=== PATIENT | female | born 1960 | race Caucasian/White ===

== ENCOUNTER 2019-11-20 09:11 | Outpatient (CLI) | payer MEDICARE, MEDICAID, SELFPAY ==
[2019-11-20 09:44] LABS: Basophils Absolute Auto 0.1 K/mm3 (0.0-0.1); Eosinophils Absolute Auto 0.7 K/mm3 (0-0.3); Eosinophils Percent Auto 7.2 % (0-4.4); Hematocrit 38.9 % (37.0-47.0); Hemoglobin 13.7 g/dL (12.0-15.0); Immature Granulocyte Absolute 0.04 K/mm3 (0.00-0.031); Immature Granulocyte Percent A 0.4 % (0-0.5); Lymphocytes Absolute Auto 2.75 K/mm3 (0.9-3.2); Lymphocytes Percent Auto 28.5 % (18.3-44.2); Mean Corpuscular HGB Conc 35.2 g/dl (32-36); Mean Corpuscular Hemoglobin 33.4 pg (26-34); Mean Corpuscular Volume 94.9 fl (80-100); Mean Platelet Volume 9.1 fl (7.4-10.4); Monocytes Absolute Auto 0.9 K/mm3 (0.1-0.6); Monocytes Percent Auto 9.1 % (2.6-8.5); Neutrophils Absolute Auto 5.2 K/mm3 (1.3-6.7); Neutrophils Percent Auto 53.8 % (45.5-73.1); Platelet Count Result 294 k/mm3 (150-375); Red Cell Distribution Width 12.6 % (11.5-14.5); White Blood Count 9.7 K/mm3 (4.5-10.0)
[2019-11-20 09:58] LABS: Alanine Aminotransferase 79 U/L (4-35); Albumin Level 4.3 g/dL (3.5-5.1); Alkaline Phosphatase 110 U/L (38-126); Anion Gap 8 mmol/L (8-16); Aspartate Amino Transferase 73 U/L (14-36); Bilirubin,Total 0.4 mg/dL (0.2-1.3); Blood Urea Nitrogen 17 mg/dL (7-17); Calcium 9.4 mg/dL (8.4-10.2); Carbon Dioxide 22 mmol/L (22-30); Chloride 104 mmol/L (98-107); Cholesterol 215 mg/dL (0-200); Estimated Glomerular Filt Rate > 60; Glucose 180 mg/dL (65-105); HDL Direct 53 mg/dL; Potassium 4.4 mmol/L (3.4-5.0); Sodium 134 mmol/L (137-145); Triglycerides 196 mg/dL (<150)
[2019-11-20 10:09] LABS: LDL Cholesterol Direct 142 mg/dL
== END 2019-11-20 09:12 | disposition home or self-care (01) ==
PROVIDERS: Visit Provider Emergency Medicine
DX: E78.5 Hyperlipidemia, unspecified (principal); E03.9 Hypothyroidism, unspecified; M89.9 Disorder of bone, unspecified
CPT/HCPCS: 36415; 80053; 80061; 84443; 85025

== ENCOUNTER 2020-05-29 14:18 | Emergency (ER) | payer MEDICARE, MEDICAID, SELFPAY ==
--- NOTE | ~2020-05-29 | XR_ITS ---
EXAMINATION: XR chest 1V portable INDICATION: Shortness of breath TECHNIQUE: Portable AP chest at 1527 hours COMPARISON: None available FINDINGS: The lungs are free of acute opacities. A calcified nodule of the right lung base is consist ent with old granulomatous disease. There is no pleural effusion or pneumothorax. The cardiomediastin al silhouette is normal. Changes of right total shoulder arthroplasty are noted. IMPRESSION: 1. No acute cardiopulmonary abnormality. Reviewed, dictated and finalized at location A. ING SUPERVISOR
[2020-05-29 14:23] VITALS: BP 148/98; PULSE 99; RESP 19; TEMP 36.6; O2SAT 99
--- NOTE | 2020-05-29 15:17 | ECG_ITS ---
Measurements Intervals [place] Rate: 88 P: 55 NH: 154 QRS: 71 QRSD: 148 T: 28 QT: 398 QTc: 482 Interpretive Statements SINUS RHYTHM RIGHT BUNDLE BRANCH BLOCK CONSIDER INFERIOR INFARCT, AGE INDETERMINATE ABNORMAL ECG Electronically Signed On 05-29-2020 15:40:38 [employer] TECHNICIAN by Bassem Bhatti D.O.
[2020-05-29 15:31] LABS: Basophils Absolute Auto 0.1 K/mm3 (0.0-0.1); Basophils Percent Auto 0.9 % (0.2-1.2); Eosinophils Absolute Auto 0.9 K/mm3 (0-0.3); Hematocrit 40.4 % (37.0-47.0); Hemoglobin 14.2 g/dL (12.0-15.0); Immature Granulocyte Absolute 0.02 K/mm3 (0.00-0.031); Immature Granulocyte Percent A 0.2 % (0-0.5); Lymphocytes Absolute Auto 2.57 K/mm3 (0.9-3.2); Lymphocytes Percent Auto 23.7 % (18.3-44.2); Mean Corpuscular HGB Conc 35.1 g/dl (32-36); Mean Corpuscular Hemoglobin 32.9 pg (26-34); Mean Corpuscular Volume 93.7 fl (80-100); Mean Platelet Volume 8.7 fl (7.4-10.4); Monocytes Absolute Auto 0.9 K/mm3 (0.1-0.6); Monocytes Percent Auto 8.2 % (2.6-8.5); Neutrophils Absolute Auto 6.4 K/mm3 (1.3-6.7); Platelet Count Result 299 k/mm3 (150-375); Red Blood Count 4.31 M/mm3 (4.2-5.4); White Blood Count 10.8 K/mm3 (4.5-10.0)
--- NOTE | 2020-05-29 15:33 | ED.GENADULT ---
HPI - General Adult General Chief complaint: Upper Respiratory Infection Stated complaint: i think i have walking pneumonia Time Seen by Provider: 05/29/20 14:42 Source: patient Mode of arrival: ambulatory Limitations: no limitations History of Present Illness HPI narrative: Patient is a 59-year-old female who presents to emergency department for evaluation of upper respiratory symptoms for the last 2 weeks patient notes cough that is nonproductive congestion rhinorrhea mild sore throat patient was placed on a Z-Jono yesterday by primary care took 2 doses yesterday 1 dose today patient notes left posterior lung pain that is an aching pain worse with breathing patient notes history of COPD and tobacco abuse patient has a nebulizer at home which she has been using off and on on arrival patient in no distress denies fever vomiting diarrhea Related Data Home Medications Medication Instructions Recorded Confirmed levothyroxine 88 mcg tablet 88 mcg PO DAILY 06/13/19 02/20/20 Allergies Allergy/AdvReac Type Severity Reaction Status Date / Time cephalexin Allergy Intermediate Other Verified 05/07/18 17:16 nalbuphine Allergy Unknown Verified 08/22/18 14:50 Sulfa (Sulfonamide Allergy Unknown Verified 08/22/18 14:49 Antibiotics) zolpidem Allergy Unknown Verified 05/19/18 11:05 Review of Systems Review of Systems: All systems reviewed & are unremarkable except as noted in HPI and below PMFSH Past Medical History Medical History (Updated 05/29/20 @ 17:12 by Daniel Allen PA-C) Acquired hypothyroidism Back pain at L4-L5 level Chronic Bitten or stung by nonvenomous insect and other nonvenomous arthropods, initial encounter Calculus of gallbladder with chronic cholecystitis without obstruction Cellulitis of toe of right foot Colon cancer screening Contact dermatitis Diverticulitis Eczema Encounter for screening for cardiovascular disorders Encounter for surgical aftercare following surgery on the digestive system Fat pad Fatigue Flank pain History of mammography, screening Insect bite of right lower leg Lytic bone lesions on xray Polyneuropathy Vitamin D deficiency Family History Family History Mother Cerebrovascular accident, Onset Age: 85 Social History Social History Smoking status: Former smoker Smoking end date: 04/11/18 Alcohol intake: never Gender identity (if verbalized by the patient): Female Exam Narrative: Exam Narrative: GENERAL: Well-appearing, well-nourished, and in no acute distress. HEAD: Normocephalic, atraumatic. EYES: PERRLA and EOMI. ENT: Nares clear, no rhinorrhea or epistaxis. Mucous membranes moist. CHEST: Slightly diminished on auscultation. No respiratory distress. Slight wheezes HEART: Regular rate and rhythm. No murmur heard. Normal peripheral pulses. ABDOMEN: Soft, nontender, nondistended EXTREMITIES: Normal range of motion. No edema. SKIN: Warm, dry, no rash. NEURO: No focal deficits. Alert and oriented x3. Cranial nerves II through XII grossly intact PSYCH: Normal mood and affect. Course Course Emergency Course: Patient in the room no distress aware of case findings treatment plan diagnosis Vital Signs Vital signs: Vital Signs Temperature 97.9 F 05/29/20 14:23 Pulse Rate 99 05/29/20 14:23 Respiratory Rate 19 05/29/20 14:23 Blood Pressure 148/98 H 05/29/20 14:23 Pulse Oximetry 99 05/29/20 14:23 Temperature 97.9 F 05/29/20 14:23 Pulse Rate 99 05/29/20 14:23 Respiratory Rate 19 05/29/20 14:23 Blood Pressure 148/98 H 05/29/20 14:23 Pulse Oximetry 99 05/29/20 14:23 Medical Decision Making MDM Narrative Medical decision making narrative: Patient seen for likely COPD exacerbation with URI symptoms will be tested for Covid advised to self quarantine treated symptomatically no pneumonia no hypoxemia p
[2020-05-29 15:39] LABS: INR 0.9; Prothrombin Time 12.9 Seconds (11.1-14.7)
[2020-05-29 15:40] LABS: Partial Thromboplastin Time 26.7 SECONDS (22.3-36.8)
[2020-05-29 15:42] LABS: D Dimer 0.43 ug/mL (<0.48)
[2020-05-29 15:45] LABS: Alanine Aminotransferase 55 U/L (4-35); Albumin Level 4.4 g/dL (3.5-5.1); Alkaline Phosphatase 93 U/L (38-126); Anion Gap 12 mmol/L (8-16); Aspartate Amino Transferase 54 U/L (14-36); Bilirubin,Total 0.9 mg/dL (0.2-1.3); Blood Urea Nitrogen 11 mg/dL (7-17); Calcium 9.9 mg/dL (8.4-10.2); Carbon Dioxide 22 mmol/L (22-30); Chloride 102 mmol/L (98-107); Estimated CRCL calculation 49 ml/min; Estimated Glomerular Filt Rate 57; Glucose 97 mg/dL (65-105); Potassium 4.2 mmol/L (3.4-5.0); Sodium 136 mmol/L (137-145)
[2020-05-29] MEDS: SODIUM CHLORIDE 0.9% IV 1,000 ML 999 ML IV CONT (15:54)
[2020-05-29 15:56] LABS: Troponin I < 0.012 ng/mL (0.000-0.034)
[2020-05-29 17:41] VITALS: BP 122/72; PULSE 79; RESP 15; O2SAT 96
[2020-05-30 14:07] LABS: SARS-CoV-2 RNA PCR Negative
== END 2020-05-29 17:42 | disposition home or self-care (01) ==
PROVIDERS: Emergency Medicine Emergency Medical Services; Emergency Provider Emergency Medicine; PCP Emergency Medicine
DX: J44.1 Chronic obstructive pulmonary disease with (acute) exacerbation (principal); E03.9 Hypothyroidism, unspecified
CPT/HCPCS: 36415; 71045; 80053; 84484; 85025; 85380; 85610; 85730; 93005; 96360; 99284; C9803; J7030; U0003; U0005

== ENCOUNTER 2020-09-17 13:47 | Outpatient (CLI) | payer MEDICARE, MEDICAID, SELFPAY ==
--- NOTE | ~2020-09-17 | MM_ITS ---
EXAMINATION: MM screening lino BI w jonathan HISTORY: Screening mammogram TECHNIQUE: Craniocaudal and mediolateral oblique 3-D tomosynthesis images were obtained and synthetic 2-D images were generated. CAD analysis was submitted and interpreted. COMPARISON: No prior mammogram is available for comparison at this institution. BREAST PARENCHYMAL COMPOSITION: There are scattered areas of fibroglandular density. FINDINGS: There is no evidence of suspicious mass, calcification, or architectural distortion to sugg est malignancy in either breast. There has been no suspicious interval change. IMPRESSION: 1. No mammographic evidence of malignancy. 2. Recommend routine screening mammography in one year. BI-RADS Category 1: Negative Reviewed, dictated and finalized at location A.
--- NOTE | ~2020-09-17 | XR_ITS ---
XR lumbar spine 2-3V 09/17/2020 14:39 Indication: Chronic centralized low back pain. No acute injury. Procedure: 3 views lumbar spine Comparison: MRI dated 08/29/2018 Findings: There is disc narrowing at L3-4, L4-5 and L5-S1. There is mild-moderate facet hypertrophy a t these levels. No acute fracture, subluxation or spondylolisthesis. Vertebral body heights are maint ained. There are cholecystectomy clips. Visualized bowel gas pattern is nonobstructive. Impression: 1: Stable-moderate lumbar spondylosis. Reviewed, dictated and finalized at location B. Impression: 1: Stable-moderate lumbar spondylosis.
== END 2020-09-17 13:48 | disposition home or self-care (01) ==
LOC: ANHIMG 13:57
PROVIDERS: PCP Emergency Medicine; Visit Provider Emergency Medicine
DX: Z12.31 Encounter for screening mammogram for malignant neoplasm of breast (principal); M54.5 Low back pain; M47.816 Spondylosis without myelopathy or radiculopathy, lumbar region
CPT/HCPCS: 72100; 77063; 77067

== ENCOUNTER 2021-02-24 09:07 | Inpatient (IN) | payer MEDICARE, MEDICAID, SELFPAY ==
[2021-02-24] VITALS (8 sets, daily range): BP systolic 120–177; BP diastolic 79–105; PULSE 58–93; RESP 14–21; TEMP 36.1–36.4; O2SAT 96–100; BMI 27.5
--- NOTE | ~2021-02-24 | XR_ITS ---
EXAMINATION: XR shoulder LT min 2V EXAM DATE: 02/24/2021 12:31 INDICATION: Fall, left clavicular, shoulder pain. Initial encounter. TECHNIQUE: The following left shoulder projections obtained: frontal projection with internal rotatio n, frontal projection with external rotation, Grashey, and scapular Y view (4+ views). There is no p rior study for comparison. FINDINGS: No evidence of left shoulder rotator cuff calcific tendinosis. There is mild glenohumeral joint, mild acromioclavicular joint primary osteoarthritis. There are no acute fractures or dislocati ons identified. There is no subcutaneous gas. The soft tissue is unremarkable. There is a tendon repair anchor along the proximal humeral shaft. IMPRESSION: 1. Left shoulder exam without acute osseous findings. 2. Mild osteoarthritis. Reviewed, dictated and finalized at location B. NER
--- NOTE | ~2021-02-24 | CT_ITS ---
EXAMINATION: CT abdomen pelvis wo con DATE: 02/25/2021 14:39 INDICATION: Abdominal distention. Diarrhea. TECHNIQUE: Computed tomography (CT) of the abdomen and pelvis was performed without intravenous contr ast. Automated exposure control and iterative reconstruction technique were employed. The dose-length product was 1153.53 mGy-cm. COMPARISON: CT abdomen and pelvis 09/25/2018 FINDINGS: The visualized portions of the lung bases demonstrate mild atelectasis. A calcified right l radha nodule is consistent with old granulomatous disease. No pleural effusion. The heart size is antione l. There are coronary artery calcifications. No pericardial effusion. There is diffuse hepatic steato sis. There are changes of cholecystectomy. The spleen and pancreas are normal. There are masses in th e adrenal glands measuring low-attenuation measuring up to 14 mm on the left, consistent with adenoma s. There is a 1.9 cm cyst in right kidney. Left kidney is normal. There is a urolithiasis. There are no dilated loops of bowel. The appendix is normal. There are no pathologically enlarged lymph nodes. There is no free intraperitoneal fluid. There is mild thoracolumbar spondylosis. IMPRESSION: 1. Diffuse hepatic steatosis. Reviewed, dictated and finalized at location A. ULATION CLERK
--- NOTE | ~2021-02-24 | CT_ITS ---
EXAMINATION: CT shoulder LT wo con DATE: 02/25/2021 14:39 INDICATION: Left shoulder pain. TECHNIQUE: Computed tomography (CT) of the left shoulder was performed without intravenous contrast. Automated exposure control and iterative reconstruction technique were employed. The dose-length prod uct was 327.29 mGy-cm. COMPARISON: Left shoulder radiographs 02/24/2021 FINDINGS: Bone alignment is normal. No fracture. There is mild osteoarthritis of glenohumeral joint a nd moderate osteoarthritis of acromioclavicular joint. Tracks in the greater tuberosity of proximal h umerus are likely from suture anchors. There is an implant in proximal humeral diaphysis. There is no asymmetric fatty atrophy of the rotator cuff muscle bellies. IMPRESSION: 1. Polyarticular osteoarthritis. Reviewed, dictated and finalized at location A. ABUSE COUNSELOR
--- NOTE | 2021-02-24 09:26 | ED.ABDPAIN ---
HPI - Abdominal Pain General Chief Complaint: Abdominal Pain Stated Complaint: diarrhea, st, congestion Time Seen by Provider: 02/24/21 09:24 Source: patient Mode of arrival: ambulatory Limitations: no limitations History of Present Illness HPI narrative: Patient is 60 years old white female presented to the ED because of massive diarrhea for the last 2 weeks. Patient is telling me liquid diarrhea at least 15 times a day associated with nausea. Patient denies any chest pain shortness of breath, back pain, abdominal pain or vomiting. Patient also denies any fever or chills. Patient reports having new onset of sore throat, body aches, and the last 3 days. Patient is fully vaccinated for COVID-19, denies any sneezing or respiratory symptoms. Patient had a fall yesterday because he was running to go to the bathroom for diarrhea, no loss of consciousness, no head injury, complaining of left shoulder pain. Denies other injuries. Related Data Home Medications Medication Instructions Recorded Confirmed exenatide microspheres 2 mg/0.65 See Rx Instructions .ROUTE .COMPLEX 09/03/20 mL subcutaneous pen injector levothyroxine 125 mcg capsule 125 mcg PO DAILY 09/12/20 Allergies Allergy/AdvReac Type Severity Reaction Status Date / Time cephalexin Allergy Intermediate Other Verified 02/24/21 09:14 triamcinolone Allergy Intermediate Rash Verified 02/24/21 09:14 nalbuphine Allergy Unknown Unknown Verified 02/24/21 09:14 Sulfa (Sulfonamide Allergy Unknown Unknown Verified 02/24/21 09:14 Antibiotics) zolpidem Allergy Unknown Unknown Verified 02/24/21 09:14 Review of Systems Review of Systems: CONSTITUTIONAL: Denies fever, chills, or sweats. EYES: Denies visual changes, redness, or discharge. ENT: Denies rhinorrhea, congestion, sore throat, or otalgia. CARDIOVASCULAR: Denies chest pain, palpitations, or edema. RESPIRATORY: Denies cough or dyspnea. GASTROINTESTINAL: Denies abdominal pain, nausea, vomiting, or diarrhea. GENITOURINARY: Denies dysuria or hematuria. SKIN: Denies rash or itching. MUSCULOSKELETAL: Denies back pain, joint pain, or myalgia. NEUROLOGIC: Denies headache, numbness, or weakness. PSYCHIATRIC: Denies anxiety or depression. [facility] Past Medical History Medical History (Updated 02/24/21 @ 12:28 by Tameka Whaley MD) Acquired hypothyroidism Back pain at L4-L5 level Chronic Bitten or stung by nonvenomous insect and other nonvenomous arthropods, initial encounter Calculus of gallbladder with chronic cholecystitis without obstruction Cellulitis of toe of right foot Colon cancer screening Contact dermatitis Diverticulitis Eczema Encounter for screening for cardiovascular disorders Encounter for surgical aftercare following surgery on the digestive system Fat pad Fatigue Flank pain History of mammography, screening Insect bite of right lower leg Lytic bone lesions on xray Polyneuropathy Vitamin D deficiency Family History Family History Mother Cerebrovascular accident, Onset Age: 85 Social History Social History Smoking status: Former smoker Smoking end date: 04/11/18 Alcohol intake: never Gender identity (if verbalized by the patient): Female Exam Narrative: General appearance: Well-developed, well-nourished Skin: Normal color Head: Normocephalic, nontraumatic Eyes: Clear conjunctiva ENT: Oropharynx normal, ears normal, nose normal Neck: Supple, nontender Chest and respiratory: Airway patent, no respiratory distress, no accessory muscle use Heart: Regular rate/rhythm Abdomen: Soft, nontender, no organomegaly, quiet bowel sounds Vascular: Normal peripheral pulses, normal capillary refill. Musculoskeletal: Diffuse tenderness left shoulder superiorly, slight limited range of motion Neurologic: Alert and oriented ?3, ORTHOPEDIC PODIATRIST is normal as tested, no gross motor deficit
[2021-02-24] MEDS: SODIUM CHLORIDE 0.9% IV 1,000 ML 999 ML IV CONT (09:30)
[2021-02-24 09:34] LABS: Basophils Absolute Auto 0.1 K/mm3 (0.0-0.1); Eosinophils Absolute Auto 0.4 K/mm3 (0-0.3); Eosinophils Percent Auto 4.3 % (0-4.4); Hematocrit 38.8 % (37.0-47.0); Hemoglobin 13.6 g/dL (12.0-15.0); Immature Granulocyte Absolute 0.02 K/mm3 (0.00-0.031); Immature Granulocyte Percent A 0.2 % (0-0.5); Lymphocytes Absolute Auto 3.14 K/mm3 (0.9-3.2); Lymphocytes Percent Auto 34.5 % (18.3-44.2); Mean Corpuscular HGB Conc 35.1 g/dl (32-36); Mean Corpuscular Hemoglobin 32.7 pg (26-34); Mean Corpuscular Volume 93.3 fl (80-100); Mean Platelet Volume 8.7 fl (7.4-10.4); Monocytes Absolute Auto 0.7 K/mm3 (0.1-0.6); Monocytes Percent Auto 7.6 % (2.6-8.5); Neutrophils Absolute Auto 4.8 K/mm3 (1.3-6.7); Neutrophils Percent Auto 52.4 % (45.5-73.1); Platelet Count Result 301 k/mm3 (150-375); Red Blood Count 4.16 M/mm3 (4.2-5.4); Red Cell Distribution Width 12.9 % (11.5-14.5); White Blood Count 9.1 K/mm3 (4.5-10.0)
[2021-02-24 09:39] LABS: Alanine Aminotransferase 52 U/L (4-35); Albumin Level 4.9 g/dL (3.5-5.1); Alkaline Phosphatase 102 U/L (38-126); Anion Gap 12 mmol/L (8-16); Aspartate Amino Transferase 42 U/L (14-36); Bilirubin,Total 1.4 mg/dL (0.2-1.3); Blood Urea Nitrogen 16 mg/dL (7-17); Calcium 9.9 mg/dL (8.4-10.2); Carbon Dioxide 19 mmol/L (22-30); Chloride 106 mmol/L (98-107); Estimated CRCL calculation 53 ml/min; Estimated Glomerular Filt Rate > 60; Glucose 135 mg/dL (65-110); Lipase 108 U/L (23-300); Potassium 3.8 mmol/L (3.4-5.0); Sodium 137 mmol/L (137-145)
[2021-02-24 09:41] LABS: Add Urine Microscopic? YES; Appearance Urine Cloudy (Clear); Bilirubin Urine Negative (Negative); Blood Urine Negative (Negative); Color Urine Amber (Yellow); Glucose Urine UA Negative (Negative); Ketones Urine Negative (Negative); Leukocyte Esterase Ur Trace LEU/UL (Negative); Mucus Urine Few /lpf; Nitrate Urine Negative (Negative); Protein Urine 1+ mg/dL (Negative); RBC Urine 0-2 /hpf (0-2); Specific Grav Ur 1.023 (1.001-1.035); Squamous Epithelial Cell Urine Moderate /hpf (Few)
--- NOTE | 2021-02-24 14:30 | PM.IMHP ---
H&P: HPI History of Present Illness Date/Time: 02/24/21 14:30 Chief Complaint: Diarrhea. Narrative: This is a 60-year-old female with history of mitochondrial myopathy, hypothyroidism, and anxiety who presented to the emergency department earlier today from home for evaluation of diarrhea. Per patient report, she typically has a bowel movement every 21 days however over the past 3 weeks she has developed diarrhea and reports up to 30 episodes of watery orange/brown stools a day. She has had some mild nausea and bloating but she has not had any significant abdominal discomfort. Initially she thought perhaps she had the flu as she had some body aches and intermittent chills and sweats. She has tried fasting as well as multiple vyha-tex-ecsszqj medications however she has continued to have the diarrhea. She has been drinking a lot of 6 bright and water to stay hydrated but has been getting somewhat lightheaded. In fact last night when coming back from the bathroom she was feeling lightheaded and fell forward onto the floor, mainly on her left shoulder, and she thinks perhaps she had a brief loss of consciousness with that as well. She has not had a documented fever. There has not been any blood or mucus in the stool. She denies recent antibiotic use, travel, and sick contacts. Patient had a colonoscopy several years ago in which 1 benign polyp was removed. She also reports a history of diverticulitis many years ago but states these symptoms are not at all similar. Review of Systems Review of Systems: Twelve systems were reviewed. No fever. She has had a mild sore throat. No sinus congestion. She has had perhaps a mild cough. No chest pain or shortness of breath. No vomiting. No blood or mucus in the stool. No weight loss. [facility] Past Medical History Medical History (Updated 02/24/21 @ 23:44 by Mallory Rollins PA-C) Anxiety Chronic back pain Diverticulitis Eczema Hypothyroidism Lumbar spondylosis Lytic bone lesions on xray Subsequent MRIs showed no evidence of lytic lesions. 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 History of repair of left rotator cuff History of reverse total replacement of right shoulder joint Family History Family History Mother Cerebrovascular accident, Onset Age: 85 Heart disease Father Parkinson's disease Social History Social History (Updated 02/24/21 @ 23:45 by Mallory Rollins PA-C) Social History: Surrogate decision maker: herlinda Slater or Elinor Blanchard, sister. Code status: Full code. Smoking packs per day: 1 Smoking cigarettes per day: 20.0 Smoking status: Current every day smoker Tobacco type: cigarettes Second hand tobacco smoke exposure: Yes Additional smoking assessment comments: Off and on since age 16. Previously quit for nearly 20 years. Alcohol intake: current Alcohol use details: Drinks perhaps 1 or 2 alcoholic beverages a year. Substance use: current Other substance usage details: Medical marijuana. Additional living arrangements comments: The patient lives in [place] with her fiance. Additional occupation/education comments: Disabled. Meds Home Medications and Allergies Home Medications Medication Instructions Recorded Confirmed Type albuterol sulfate See Rx Instructions .ROUTE 07/03/19 02/20/20 Rx .COMPLEX #180 ml exenatide microspheres 2 mg/0.65 See Rx Instructions .ROUTE .COMPLEX 09/03/20 History mL subcutaneous pen injector triamcinolone acetonide 0.1 % See Rx Instructions .ROUTE 09/10/20 Rx topical cr
[2021-02-24] MEDS: ACETAMINOPHEN 500 MG TABLET 1000 MG PO (15:26)
--- NOTE | 2021-02-24 15:53 | PC.NURSE ---
This patient, Dianne Arenas, was admitted to [facility] Surg Room 322-01 at 1543. Patient/family oriented to hospital policies and general routines including ID bracelet, bed and alarms, visiting hours, pain management, procedures, bathroom and other care routines, personal items, smoking policy, room service/diet, and visiting hours. Information on how to activate the Rapid Response Team has been discussed. Patient/Family are encouraged to report perceived risks to care and to ask questions if they do not understand what they are told or what they should do.
[2021-02-24] MEDS: SODIUM CHLORIDE 0.9% IV 1,000 ML 200 ML IV CONT ×2 (16:57→22:30)
--- NOTE | 2021-02-24 17:21 | PC.NURSE ---
pt has top denture plate
[2021-02-24] MEDS: HYDROcodone/acetaminophen (*CRX) 5-325 MG TABLET 1 TAB PO (20:01)
[2021-02-24] MEDS: ONDANSETRON INJ 4 MG/2 ML VIAL IV PUSH (22:31)
[2021-02-25] MEDS: HYDROcodone/acetaminophen (*CRX) 5-325 MG TABLET 1 TAB PO ×3 (01:27→20:26)
[2021-02-25] MEDS: ONDANSETRON INJ 4 MG/2 ML VIAL IV PUSH ×4 (01:28→18:26)
[2021-02-25 02:57] LABS: IFOB Positive Control Positive; Immunochemical Fecal Occult Bl Negative (N)
[2021-02-25 06:40] VITALS: BP 117/77; PULSE 61; RESP 14; TEMP 36.1; O2SAT 99
[2021-02-25 06:44] LABS: Anion Gap 8 mmol/L (8-16); Blood Urea Nitrogen 9 mg/dL (7-17); Calcium 8.9 mg/dL (8.4-10.2); Carbon Dioxide 20 mmol/L (22-30); Chloride 111 mmol/L (98-107); Estimated CRCL calculation 67 ml/min; Estimated Glomerular Filt Rate > 60; Glucose 110 mg/dL (65-110); Magnesium 1.5 mg/dL (1.6-2.3); Potassium 3.6 mmol/L (3.4-5.0); Sodium 139 mmol/L (137-145)
[2021-02-25] MEDS: LEVOTHYROXINE SODIUM 25 MCG TABLET PO (06:44)
[2021-02-25] MEDS: LEVOTHYROXINE SODIUM 100 MCG TABLET PO (06:44)
[2021-02-25] MEDS: SODIUM CHLORIDE 0.9% IV 1,000 ML 75 ML IV CONT ×2 (06:46→20:28)
[2021-02-25] MEDS: AMITRIPTYLINE HCL 25 MG TABLET PO (08:21)
--- NOTE | 2021-02-25 11:18 | PCCCNOTE ---
On 02/25/21, the student, [Hallie Leone ], provided care and [facility]. I have reviewed the student's documentation and agree with the findings.
--- NOTE | 2021-02-25 11:20 | PM.IMPN ---
Progress Note: A&P Assessment and Plan (1) Diarrhea: Code(s): R19.7 - Diarrhea, unspecified Status: Acute Assessment and Plan: Patient reports having upwards of 30 liquid stools a day for the past 3 weeks. No significant electrolyte abnormalities noted on labs however her serum bicarb is a bit low at 19. Stool studies including culture have been collected and are pending. Banatrol Plus added to help bulk up her stools. No indication for antibiotics at this time. Dr. Contreras has been consulted and his input is appreciated. Ongoing so will recheck CT abdomen and pelvis Check ESR and CRP She states that she gets normally 1 bowel movement every 3 weeks Colonoscopy in the past with polyp few years ago (2) Elevated LFTs: Code(s): R79.89 - Other specified abnormal findings of blood chemistry Status: Acute Assessment and Plan: Total bilirubin, AST, and ALT are very mildly elevated and this has been noted on labs dating back to November 2019. Being followed by her primary care provider thus no plans for further workup. (3) Hypothyroidism: Code(s): E03.9 - Hypothyroidism, unspecified Status: Acute Assessment and Plan: Continue levothyroxine and check TSH. (4) Anxiety: Code(s): F41.9 - Anxiety disorder, unspecified Status: Acute Assessment and Plan: No acute issues. Continue clonazepam. (5) Elevated blood pressure reading: Code(s): R03.0 - Elevated blood-pressure reading, without diagnosis of hypertension Status: Acute Assessment and Plan: Patient's blood pressure has ranged from the 120s to 170 systolic. She has no history of hypertension thus we will continue to monitor to see us this is a trend or isolated readings. 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 (7) Left shoulder pain: Code(s): M25.512 - Pain in left shoulder Status: Acute Assessment and Plan: Since the fall. X-ray negative will get CT left shoulder for further evaluation History of arthroscopic debridement of the SL a PT year release of the by since tendon January 17, 2020 Subjective Date/time seen: 02/25/21 11:20 Interval history: HPI:This is a 60-year-old female with history of mitochondrial myopathy, hypothyroidism, and anxiety who presented to the emergency department earlier today from home for evaluation of diarrhea. Per patient report, she typically has a bowel movement every 21 days however over the past 3 weeks she has developed diarrhea and reports up to 30 episodes of watery orange/brown stools a day. She has had some mild nausea and bloating but she has not had any significant abdominal discomfort. Initially she thought perhaps she had the flu as she had some body aches and intermittent chills and sweats. She has tried fasting as well as multiple owzy-vpr-iopgofd medications however she has continued to have the diarrhea. She has been drinking a lot of 6 bright and water to stay hydrated but has been getting somewhat lightheaded. In fact last night when coming back from the bathroom she was feeling lightheaded and fell forward onto the floor, mainly on her left shoulder, and she thinks perhaps she had a brief loss of consciousness with that as well. She has not had a documented fever. There has not been any blood or mucus in the stool. She denies recent antibiotic use, travel, and sick contacts. Patient had a colonoscopy several years ago in which 1 benign polyp was removed. She also reports a history of diverticulitis many years ago but states these symptoms are not at all similar. 02/25/2021: Reports her left shoulder pain is bad. St
[2021-02-25 12:09] LABS: CRP < 0.5 mg/dL (<1.0)
[2021-02-25] MEDS: MORPHINE SULFATE (*CRX) 2 MG/ML INJ IV PUSH ×2 (12:50→17:45)
[2021-02-25] MEDS: MAGNESIUM SULF 2 GM/WATER 50ML 2 GM/50 ML BAG IVPB (12:50)
[2021-02-25 13:14] VITALS: BMI 27.5
[2021-02-25 14:00] VITALS: BP 129/101; PULSE 62; RESP 16; TEMP 36.1; O2SAT 99
[2021-02-25 14:49] LABS: Erythrocyte Sedimentation Rate 15 mm/hr (0-20)
[2021-02-25] MEDS: clonazePAM (*CRX) 0.5 MG TABLET 1 MG PO ×2 (14:55→20:24)
--- NOTE | 2021-02-25 16:18 | WPDGICN ---
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, not elsewhere classified Status: Acute Assessment and Plan: will get ck she is seeing neurology at [facility] (3) Elevated LFTs: Code(s): R79.89 - Other specified abnormal findings of blood chemistry Status: Acute Assessment and Plan: stable since last year ct scan noted fatty liver will get hepatitis serology (4) Fatty liver: Code(s): K76.0 - Fatty (change of) liver, not elsewhere classified Status: Acute (5) Bloating: Code(s): R14.0 - Abdominal distension (gaseous) Status: Acute GI Consult Note Consult date/time: 02/25/21 16:18 Reason for consult: diarrhea HPI: Dianne Arenas is a 60 year old female with 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 She says that at baseline for last couple of years she normally won't use restroom for up to 3 weeks then will have a normal BM. Last 3 weeks with several episodes of diarrhea daily sometimes with accidents when she can't make it on time to restroom, watery orange/brown stools, also bloating and nausea. Some chills but no fever, can not tell if weight loss. She tried fasting as well as multiple qsoj-[id number] medications without any relief. Yesterday was feeling lightheaded and fell forward onto the floor, and she thinks perhaps she had a brief loss of consciousness. She denies recent antibiotic use, travel, and sick contacts. Her last colonoscopy about 3 years ago with polyp removed. CT scan a/p reviewed, Diffuse hepatic steatosis. Also mild elevated liver enzymes but noted previously. Review of Systems Constitutional: Constitutional: Reports lethargy Eyes: Eyes: Denies blurry vision ENT: Reports Normal hearing present Cardiovascular: Cardiovascular: Denies chest pain Respiratory: Respiratory: Denies dyspnea Gastrointestinal: Gastrointestinal: Reports diarrhea Genitourinary: Genitourinary: Denies hematuria Musculoskeletal: Musculoskeletal: Denies neck pain Integumentary/Breasts: Skin/Breast: Denies dry skin Neurologic: Comments: muscle weakness- chronic Psychiatric: Psychiatric: Reports no additional psychiatric complaints [facility] Past Medical History Medical History (Updated 02/25/21 @ 16:27 by Jesus Alberto Contreras MD) Anxiety Bloating Chronic back pain Diverticulitis Eczema Fatty liver Hypothyroidism Lumbar spondylosis Lytic bone lesions on xray Subsequent MRIs showed no evidence of lytic lesions. 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 History of repair of left rotator cuff History of reverse total replacement of right shoulder joint Family History Family History Mother Cerebrovascular accident, Onset Age: 85 Heart disease Father Parkinson's disease Social History Social History (Updated 02/24/21 @ 23:45 by Mallory Rollins PA-C) Social History: Surrogate decision maker: herlinda Slater or Elinor Blanchard, sister. Code status: Full code. Smoking packs per day: 1 Smoking cig
[2021-02-25] MEDS: CYCLOBENZAPRINE HCL 10 MG TABLET PO (20:27)
[2021-02-25 22:00] VITALS: BP 137/95; PULSE 65; RESP 16; TEMP 36.7; O2SAT 97
[2021-02-26] MEDS: LEVOTHYROXINE SODIUM 100 MCG TABLET PO (05:31)
[2021-02-26] MEDS: LEVOTHYROXINE SODIUM 25 MCG TABLET PO (05:31)
[2021-02-26 06:00] VITALS: BP 134/88; PULSE 63; RESP 16; TEMP 36.8; O2SAT 96
[2021-02-26 06:47] LABS: Basophils Absolute Auto 0.1 K/mm3 (0.0-0.1); Eosinophils Absolute Auto 0.4 K/mm3 (0-0.3); Hemoglobin 12.2 g/dL (12.0-15.0); Immature Granulocyte Absolute 0.02 K/mm3 (0.00-0.031); Immature Granulocyte Percent A 0.3 % (0-0.5); Lymphocytes Absolute Auto 1.99 K/mm3 (0.9-3.2); Lymphocytes Percent Auto 32.4 % (18.3-44.2); Mean Corpuscular HGB Conc 34.9 g/dl (32-36); Mean Corpuscular Hemoglobin 33.3 pg (26-34); Mean Corpuscular Volume 95.6 fl (80-100); Mean Platelet Volume 8.7 fl (7.4-10.4); Monocytes Absolute Auto 0.6 K/mm3 (0.1-0.6); Neutrophils Absolute Auto 3.2 K/mm3 (1.3-6.7); Neutrophils Percent Auto 51.3 % (45.5-73.1); Platelet Count Result 249 k/mm3 (150-375); Red Blood Count 3.66 M/mm3 (4.2-5.4); Red Cell Distribution Width 12.6 % (11.5-14.5); White Blood Count 6.1 K/mm3 (4.5-10.0)
[2021-02-26 06:55] LABS: Alanine Aminotransferase 51 U/L (4-35); Albumin Level 3.7 g/dL (3.5-5.1); Alkaline Phosphatase 80 U/L (38-126); Anion Gap 8 mmol/L (8-16); Aspartate Amino Transferase 47 U/L (14-36); Blood Urea Nitrogen 7 mg/dL (7-17); Carbon Dioxide 20 mmol/L (22-30); Chloride 107 mmol/L (98-107); Creatine Kinase 104 U/L (30-135); Estimated CRCL calculation 67 ml/min; Estimated Glomerular Filt Rate > 60; Glucose 118 mg/dL (65-110); Potassium 3.8 mmol/L (3.4-5.0); Sodium 135 mmol/L (137-145)
[2021-02-26 07:07] LABS: Prothrombin Time 13.4 Seconds (11.1-14.7)
[2021-02-26] MEDS: AMITRIPTYLINE HCL 25 MG TABLET PO (08:14)
[2021-02-26 09:14] LABS: Hepatitis B Surface Antigen Negative (Negative)
[2021-02-26 09:20] LABS: HAV RESULT Negative (Negative); Hepatitis B Core IgM Result Negative (Negative)
[2021-02-26] MEDS: CYCLOBENZAPRINE HCL 10 MG TABLET PO (09:28)
[2021-02-26] MEDS: HYDROcodone/acetaminophen (*CRX) 5-325 MG TABLET 1 TAB PO (09:28)
[2021-02-26 09:31] LABS: Hepatitis C Virus Antibody Negative (Negative)
[2021-02-26] MEDS: SODIUM CHLORIDE 0.9% IV 1,000 ML 75 ML IV CONT (11:42)
[2021-02-26] MEDS: MORPHINE SULFATE (*CRX) 2 MG/ML INJ IV PUSH ×3 (11:46→23:00)
[2021-02-26] MEDS: ONDANSETRON INJ 4 MG/2 ML VIAL IV PUSH ×2 (12:53→23:02)
--- NOTE | 2021-02-26 13:50 | PM.IMPN ---
Progress Note: A&P Assessment and Plan (1) Diarrhea: Code(s): R19.7 - Diarrhea, unspecified Status: Acute Assessment and Plan: Patient reports having upwards of 30 liquid stools a day for the past 3 weeks. No significant electrolyte abnormalities noted on labs however her serum bicarb is a bit low at 19. Stool studies including culture have been collected and are pending. Banatrol Plus added to help bulk up her stools. No indication for antibiotics at this time. Dr. Contreras has been consulted and his input is appreciated. CT abdomen pelvis with no intestinal problem noted has hepatic steatosis ESR CRP normal indicating non inflammatory diarrhea She states that she gets normally 1 bowel movement every 3 weeks Colonoscopy in the past with polyp few years ago Stool test has been so far negative some of this is are still pending. May treat for irritable bowel syndrome with diarrhea with rifaximin once cultures finalized GI consultation appreciated. Plan for colonoscopy on Tuesday if nothing revealing until then (2) Elevated LFTs: Code(s): R79.89 - Other specified abnormal findings of blood chemistry Status: Acute Assessment and Plan: Total bilirubin, AST, and ALT are very mildly elevated and this has been noted on labs dating back to November 2019. Being followed by her primary care provider thus no plans for further workup. Hepatic steatosis noted and the CT scan (3) Hypothyroidism: Code(s): E03.9 - Hypothyroidism, unspecified Status: Acute Assessment and Plan: Continue levothyroxine and TSH within normal limit (4) Anxiety: Code(s): F41.9 - Anxiety disorder, unspecified Status: Acute Assessment and Plan: No acute issues. Continue clonazepam. (5) Elevated blood pressure reading: Code(s): R03.0 - Elevated blood-pressure reading, without diagnosis of hypertension Status: Acute Assessment and Plan: Patient's blood pressure has ranged from the 120s to 170 systolic. She has no history of hypertension thus we will continue to monitor to see us this is a trend or isolated readings. 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 (7) Left shoulder pain: Code(s): M25.512 - Pain in left shoulder Status: Acute Assessment and Plan: Since the fall. X-ray negative CT left shoulder with no bony injuries noted likely musculoskeletal injury biceps tendinosis likely Symptomatic treatment History of arthroscopic debridement of the SL a PT year release of the by since tendon January 17, 2020 Subjective Date/time seen: 02/26/21 13:50 Interval history: HPI:This is a 60-year-old female with history of mitochondrial myopathy, hypothyroidism, and anxiety who presented to the emergency department earlier today from home for evaluation of diarrhea. Per patient report, she typically has a bowel movement every 21 days however over the past 3 weeks she has developed diarrhea and reports up to 30 episodes of watery orange/brown stools a day. She has had some mild nausea and bloating but she has not had any significant abdominal discomfort. Initially she thought perhaps she had the flu as she had some body aches and intermittent chills and sweats. She has tried fasting as well as multiple [id number] medications however she has continued to have the diarrhea. She has been drinking a lot of 6 bright and water to stay hydrated but has been getting somewhat lightheaded. In fact last night when coming back from the bathroom she was feeling lightheaded and fell forward onto the floor, mainly on her left shoulder, and she thinks perhaps she had a
[2021-02-26 14:00] VITALS: BP 129/73; PULSE 53; RESP 20; TEMP 36.4; O2SAT 100
--- NOTE | 2021-02-26 16:51 | WPDGIPROGNO ---
Progress Note: A&P Assessment and Plan (1) Diarrhea: Code(s): R19.7 - Diarrhea, unspecified Status: Acute Assessment and Plan: stool samples thus far negative for infection will do colonoscopy tomorrow with random colon bx. 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 Review of Systems Review of Systems: All systems reviewed & are unremarkable except as noted in HPI and below Exam Const: General: comfortable and no acute distress HENMT: General nose exam: Normal nares present Eyes: General: appearance normal, both eyes and all related structures Neck: Neck: no JVD Resp: Auscultation: clear to auscultation bilaterally Cardio: Rate: regular rate Rhythm: regular rhythm GI: Inspection: non-distended GI Palp: Yes Soft to palpation and No Guarding due to palpation present (GI) Auscultation: normal bowel sounds Skin: General skin exam: normal color Neuro: Speech: normal speech Extrem: General: normal to inspection Psych: Mental Status: mental status grossly normal Objective Data Vital Signs Vital Signs: Vital Signs - 24 hr 02/25/21 22:00 02/26/21 06:00 02/26/21 14:00 Temperature 98.0 F 98.3 F 97.5 F L Pulse Rate 65 63 53 L Respiratory Rate 16 16 20 Blood Pressure 137/95 H 134/88 129/73 Pulse Oximetry 97 96 100 Intake/Output Intake/Output: Intake & Output 02/23/21 02/24/21 02/25/21 02/26/21 23:59 23:59 23:59 23:59 Intake Total 0974 3210 1925 Output Total 550 Balance 3184 3210 1375 Meds/Results Medications: Active Medications Generic Name Dose Route Start Last Admin Trade Name Freq PRN Reason Stop Dose Admin Acetaminophen 650 mg 02/24/21 18:26 Acetaminophen 325 Mg Tablet PO Q6H PRN Mild Pain (1-3) or Fever Hydrocodone Bitart/Acetaminophen 1 tab 02/24/21 18:26 02/26/21 09:28 Hydrocodone/Acetaminophen (*Crx) 5-325 Mg Tablet PO 1 tab Q6H PRN Administration Pain Rated 4-6 Albuterol 2 puff 02/24/21 23:55 Albuterol Sulfate (*Sp) Aerosol 1 Puff INHALATION Q4-6H PRN Shortness Of Breath Or Wheezing Amitriptyline HCl 25 mg 02/25/21 09:00 02/26/21 08:14 Amitriptyline Hcl 25 Mg Tablet PO 25 mg DAILY MICHELLE Administration Bisacodyl 20 mg 02/26/21 17:00 Bisacodyl 5 Mg Tablet Ec PO 02/26/21 17:01 ONCE ONE Clonazepam 1 mg 02/25/21 15:00 02/25/21 20:24 Clonazepam (*Crx) 0.5 Mg Tablet PO 1 mg 1500,2100 MICHELLE Administration Cyclobenzaprine HCl 10 mg 02/25/21 11:51 02/26/21 09:28 Cyclobenzaprine Hcl 10 Mg Tablet PO 10 mg Q8H PRN Administration Muscle Spasm Sodium Chloride 1,000 mls @ 75 mls/hr 02/24/21 12:50 02/26/21 11:42 Normal Saline Iv IV CONT 75 mls/hr .[id number] MICHELLE Administration Levothyroxine Sodium 100 mcg 02/25/21 06:30 02/26/21 05:31 Levothyroxine Sodium 100 Mcg Tablet PO 100 mcg DAILY@0630 MICHELLE Administration Levothyroxine Sodium 25 mcg 02/25/21 06:30 02/26/21 05:31 Levothyroxine Sodium 25 Mcg Tablet PO 25 mcg DAILY@0630 MICHELLE Administration Magnesium Citrate 300 ml 02/27/21 04:00 Magnesium Citrate 300 Ml Btl PO 02/27/21 04:01 ONCE ONE Morphine Sulfate 2 mg 02/25/21 11:41 02/26/21 11:46 Morphine Sulfate (*Crx) 2 Mg/Ml Inj IV PUSH 2 mg Q4H PRN Administration Pain Rat
[2021-02-26] MEDS: BISACODYL 5 MG TABLET EC 20 MG PO (17:41)
[2021-02-26] MEDS: polyethylene glycoL 3350 238 GM BOTTLE PO (18:27)
[2021-02-26] MEDS: clonazePAM (*CRX) 0.5 MG TABLET 1 MG PO ×2 (18:28→20:47)
[2021-02-26 21:09] VITALS: PULSE 60; RESP 20; O2SAT 98
[2021-02-26 21:45] VITALS: BP 155/83; PULSE 61; RESP 18; TEMP 36.6; O2SAT 100
[2021-02-27] MEDS: MAGNESIUM CITRATE 300 ML BTL PO (02:48)
[2021-02-27] MEDS: MORPHINE SULFATE (*CRX) 2 MG/ML INJ IV PUSH ×2 (05:09→09:33)
[2021-02-27] MEDS: SODIUM CHLORIDE 0.9% IV 1,000 ML 75 ML IV CONT (05:13)
[2021-02-27] MEDS: LEVOTHYROXINE SODIUM 100 MCG TABLET PO (05:14)
[2021-02-27] MEDS: LEVOTHYROXINE SODIUM 25 MCG TABLET PO (05:14)
[2021-02-27] MEDS: ONDANSETRON INJ 4 MG/2 ML VIAL IV PUSH (05:18)
[2021-02-27 05:57] VITALS: BP 129/81; PULSE 73; RESP 18; TEMP 36.4; O2SAT 100
[2021-02-27 06:24] LABS: Basophils Absolute Auto 0.1 K/mm3 (0.0-0.1); Basophils Percent Auto 0.6 % (0.2-1.2); Eosinophils Absolute Auto 0.4 K/mm3 (0-0.3); Eosinophils Percent Auto 4.9 % (0-4.4); Hematocrit 38.6 % (37.0-47.0); Hemoglobin 13.4 g/dL (12.0-15.0); Immature Granulocyte Absolute 0.02 K/mm3 (0.00-0.031); Immature Granulocyte Percent A 0.3 % (0-0.5); Lymphocytes Absolute Auto 2.73 K/mm3 (0.9-3.2); Lymphocytes Percent Auto 34.1 % (18.3-44.2); Mean Corpuscular HGB Conc 34.7 g/dl (32-36); Mean Corpuscular Hemoglobin 33.3 pg (26-34); Mean Platelet Volume 8.9 fl (7.4-10.4); Monocytes Absolute Auto 0.7 K/mm3 (0.1-0.6); Monocytes Percent Auto 8.1 % (2.6-8.5); Neutrophils Absolute Auto 4.2 K/mm3 (1.3-6.7); Platelet Count Result 291 k/mm3 (150-375); Red Blood Count 4.02 M/mm3 (4.2-5.4); Red Cell Distribution Width 12.5 % (11.5-14.5)
[2021-02-27 06:40] LABS: Alanine Aminotransferase 62 U/L (4-35); Albumin Level 4.5 g/dL (3.5-5.1); Alkaline Phosphatase 93 U/L (38-126); Anion Gap 11 mmol/L (8-16); Aspartate Amino Transferase 56 U/L (14-36); Bilirubin,Total 0.8 mg/dL (0.2-1.3); Blood Urea Nitrogen 5 mg/dL (7-17); Carbon Dioxide 20 mmol/L (22-30); Chloride 105 mmol/L (98-107); Estimated CRCL calculation 59 ml/min; Estimated Glomerular Filt Rate > 60; Glucose 111 mg/dL (65-110); Potassium 3.7 mmol/L (3.4-5.0); Sodium 136 mmol/L (137-145)
[2021-02-27] MEDS: AMITRIPTYLINE HCL 25 MG TABLET PO (07:57)
[2021-02-27] MEDS: CYCLOBENZAPRINE HCL 10 MG TABLET PO (07:57)
--- NOTE | 2021-02-27 11:18 | PCNFU ---
Nutrition Follow-Up Complete: Inadequate Oral Intake as related to Diarrhea as evidenced by poor po intake reported. Goal: Meet estimated nutritional needs Pt. is progressing towards goal. No new goal at this time. Pt current nutrition is NPO. Last recorded weight is 68.2 kg. Recommend re-weighing prior to discharge. Bowel Motility: + BM 02/27/2021 Labs Reviewed: Na 136, BUN 5, Glu 111 Meds Noted: Albuterol, Elavil, Flexeril, Synthroid, Clonazepam Skin: No skin breakdown at this time. WNL. Additional Notes: Checked in with pt.. Pt. reports having 30+ bm per day. She is having a colonoscopy today, 02/27/2021. When asked about her appetite she said she cannot even think about food . She wants to get this figured out so she can start to feel normal again. Will monitor every 3 days.
--- NOTE | 2021-02-27 13:35 | PC.NURSE ---
patient going to GI lab via wheelchair.
--- NOTE | 2021-02-27 13:47 | PCNSR ---
On 02/27/21, the student, Mae James, provided care and completed [facility] documentation on this patient. I have reviewed the student's documentation and agree with the findings.
[2021-02-27] MEDS: SODIUM CHLORIDE 0.9% IV 500 ML 10 ML IV CONT (13:52)
--- NOTE | 2021-02-27 13:57 | WPDANESEPPF ---
Anes - Initial Pre Proc Eval Procedure: Operation Date: 02/27/21 14:00 Proposed Procedures p Colonoscopy - Jesus Alberto Cnotreras MD Date/Time: 02/27/21 13:57 Surgeon: Jonhson Rutledge MD Pre Op Diagnosis: diarrhea Patient Data Age: 60 Gender: F Height: 1.57 m Weight: 68.2 kg Last Vital Signs Temp 97.6 F 02/27/21 05:57 Pulse 73 02/27/21 05:57 Resp 18 02/27/21 05:57 BP 129/81 02/27/21 05:57 Pulse Ox 100 02/27/21 05:57 Allergies Allergy/AdvReac Type Severity Reaction Status Date / Time cephalexin Allergy Intermediate Other Verified 02/24/21 09:14 triamcinolone Allergy Intermediate Rash Verified 02/24/21 09:14 nalbuphine Allergy Unknown Unknown Verified 02/24/21 09:14 Sulfa (Sulfonamide Allergy Unknown Unknown Verified 02/24/21 09:14 Antibiotics) zolpidem Allergy Unknown Unknown Verified 02/24/21 09:14 lactated Ringers Allergy Other Uncoded 02/27/21 13:48 Home Medications Medication Instructions Recorded Confirmed Type albuterol sulfate See Rx Instructions .ROUTE 07/03/19 02/20/20 Rx .COMPLEX #180 ml exenatide microspheres 2 mg/0.65 See Rx Instructions .ROUTE .COMPLEX 09/03/20 History mL subcutaneous pen injector triamcinolone acetonide 0.1 % See Rx Instructions .ROUTE 09/10/20 Rx topical cream .COMPLEX #80 g levothyroxine 125 mcg capsule 125 mcg PO DAILY 09/12/20 02/24/21 History albuterol sulfate 90 mcg/actuation See Rx Instructions .ROUTE 12/12/20 02/24/21 Rx aerosol inhaler .COMPLEX #25.5 g clonazepam 1 mg tablet 1 mg PO BID #60 tablet 12/25/20 02/24/21 Rx amitriptyline 25 mg tablet 25 mg PO DAILY #30 tablet 02/25/21 Rx Laboratory Tests 02/27/21 02/27/21 05:57 05:57 WBC 8.0 K/mm3 K/mm3 (4.5-10.0) RBC 4.02 M/mm3 L M/mm3 (4.2-5.4) Hgb 13.4 g/dL g/dL (12.0-15.0) Hct 38.6 % % (37.0-47.0) MCV 96.0 fl fl (80-100) MCH 33.3 pg pg (26-34) MCHC 34.7 g/dl g/dl (32-36) RDW 12.5 % % (11.5-14.5) Plt Count 291 k/mm3 k/mm3 (150-375) MPV 8.9 fl fl (7.4-10.4) Immature Gran % (Auto) 0.3 % % (0-0.5) Neut % (Auto) 52.0 % % (45.5-73.1) Lymph % (Auto) 34.1 % % (18.3-44.2) [place] % (Auto) 8.1 % % (2.6-8.5) Eos % (Auto) 4.9 % H % (0-4.4) Baso % (Auto) 0.6 % % (0.2-1.2) Lymph # (Auto) 2.73 K/mm3 K/mm3 (0.9-3.2) [place] # (Auto) 0.7 K/mm3 H K/mm3 (0.1-0.6) Eos # (Auto) 0.4 K/mm3 H K/mm3 (0-0.3) Baso # (Auto) 0.1 K/mm3 K/mm3 (0.0-0.1) Abs Immat Gran (auto) 0.02 K/mm3 K/mm3 (0.00-0.031) Absolute Neuts (auto) 4.2 K/mm3 K/mm3 (1.3-6.7) Absolute Nucleated RBC 0.0 K/mm3 K/mm3 (0.0-0.012) Nucleated RBC % 0.0 % % (0.0-0.2) Sodium 136 mmol/L L mmol/L (137-145) Potassium 3.7 mmol/L mmol/L (3.4-5.0) Chloride 105 mmol/L mmol/L (98-107) Carbon Dioxide 20 mmol/L L mmol/L (22-30) Anion Gap 11 mmol/L mmol/L (8-16) BUN 5 mg/dL L mg/dL (7-17) Creatinine 0.80 mg/dL mg/dL (0.7-1.0) Estim Creat Clear Calc 59 ml/min ml/min Estimated GFR > 60 (59 - ) Glucose 111 mg/dL H mg/dL (65-110) Calcium 10.0 mg/dL mg/dL (8.4-10.2) Total Bilirubin 0.8 mg/dL mg/dL (0.2-1.3) AST 56 U/L H U/L (14-36) ALT 62 U/L H U/L (4-35) Alkaline Phosphatase 93 U/L U/L (38-126) Total Protein 7.0 g/dL g/dL (6.3-8.2) Albumin 4.5 g/dL g/dL (3.5-5.1) Patient hx anesthesia problems: none Family hx anesthesia problems: none Results Review: All pre-operative results and documents have been reviewed as part of the pre-operative evaluation. [facility] Past Medical History Medical History (Updated 02/25/21 @ 16:27 by Jesus Alberto Contreras MD) Anxiety Bloating Chronic back pain Diverticulitis Eczema Fatty liver Hypothyroidism Lumbar spondylosis Lytic bone lesions
[2021-02-27 14:47] VITALS: BP 99/57; PULSE 58; RESP 16; O2SAT 99
[2021-02-27 14:57] VITALS: BP 99/53; PULSE 55; RESP 23; O2SAT 100
[2021-02-27 15:07] VITALS: BP 114/62; PULSE 53; RESP 18; O2SAT 99
--- NOTE | 2021-02-27 15:18 | PM.IMPN ---
Progress Note: A&P Assessment and Plan (1) Diarrhea: Code(s): R19.7 - Diarrhea, unspecified Status: Acute Assessment and Plan: Patient reports having upwards of 30 liquid stools a day for the past 3 weeks. No significant electrolyte abnormalities noted on labs however her serum bicarb is a bit low at 19. Stool studies including culture have been collected and are pending. Banatrol Plus added to help bulk up her stools. No indication for antibiotics at this time. Dr. Contreras has been consulted and his input is appreciated. CT abdomen pelvis with no intestinal problem noted has hepatic steatosis ESR CRP normal indicating non inflammatory diarrhea She states that she gets normally 1 bowel movement every 3 weeks Colonoscopy in the past with polyp few years ago Stool test has been so far negative some of this is are still pending. May treat for irritable bowel syndrome with diarrhea with rifaximin once cultures finalized GI consultation appreciated. Status post colonoscopy which came back negative done on 02/27/2021 All the stool test has been negative for any infection ongoing diarrhea since past 3 weeks without grossly abnormal BMP Likely readable bowel syndrome with diarrhea. She does have constipation with bowel movement every 3 weeks prior to this. I have discussed use of rifaximin for her irritable bowel syndrome with diarrhea and she is agreeable Will start rifaximin 550 mg t.i.d. (2) Elevated LFTs: Code(s): R79.89 - Other specified abnormal findings of blood chemistry Status: Acute Assessment and Plan: Total bilirubin, AST, and ALT are very mildly elevated and this has been noted on labs dating back to November 2019. Being followed by her primary care provider thus no plans for further workup. Hepatic steatosis noted and the CT scan (3) Hypothyroidism: Code(s): E03.9 - Hypothyroidism, unspecified Status: Acute Assessment and Plan: Continue levothyroxine and TSH within normal limit (4) Anxiety: Code(s): F41.9 - Anxiety disorder, unspecified Status: Acute Assessment and Plan: No acute issues. Continue clonazepam. (5) Elevated blood pressure reading: Code(s): R03.0 - Elevated blood-pressure reading, without diagnosis of hypertension Status: Acute Assessment and Plan: Patient's blood pressure has ranged from the 120s to 170 systolic. She has no history of hypertension thus we will continue to monitor to see us this is a trend or isolated readings. 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 (7) Left shoulder pain: Code(s): M25.512 - Pain in left shoulder Status: Acute Assessment and Plan: Since the fall. X-ray negative CT left shoulder with no bony injuries noted likely musculoskeletal injury biceps tendinosis likely Symptomatic treatment History of arthroscopic debridement of the SL a PT year release of the by since tendon January 17, 2020 Subjective Date/time seen: 02/27/21 15:18 Interval history: HPI:This is a 60-year-old female with history of mitochondrial myopathy, hypothyroidism, and anxiety who presented to the emergency department earlier today from home for evaluation of diarrhea. Per patient report, she typically has a bowel movement every 21 days however over the past 3 weeks she has developed diarrhea and reports up to 30 episodes of watery orange/brown stools a day. She has had some mild nausea and bloating but she has not had any significant abdominal discomfort. Initially she thought perhaps she had the flu as she had some body aches and intermittent chills and sweats. She has tried fasti
--- NOTE | 2021-02-27 16:15 | PM.DS ---
DS: Admitting Diagnosis Discharge Date 02/27/2021 Admitting Diagnosis Diarrhea DS: Discharge Diagnosis Discharge Diagnosis (1) Diarrhea: Code(s): R19.7 - Diarrhea, unspecified Status: Acute Assessment and Plan: Patient reports having upwards of 30 liquid stools a day for the past 3 weeks prior to admission. No significant electrolyte abnormalities noted on labs however her serum bicarb is a bit low at 19. Stool studies including culture have been collected and are pending. Banatrol Plus added to help bulk up her stools. No indication for antibiotics at this time. Dr. Contreras has been consulted and his input is appreciated. CT abdomen pelvis with no intestinal problem noted has hepatic steatosis ESR CRP normal indicating non inflammatory diarrhea Prior to this she states she gets normally 1 bowel movement every 3 weeks Colonoscopy in the past with polyp few years ago GI consultation appreciated. Status post colonoscopy which came back negative done on 02/27/2021 All the stool test has been negative for any infection ongoing diarrhea since past 3 weeks without grossly abnormal BMP Likely readable bowel syndrome with diarrhea. She does have constipation with bowel movement every 3 weeks prior to this. I have discussed use of rifaximin for her irritable bowel syndrome with diarrhea and she is agreeable Will start rifaximin 550 mg t.i.d. Also added cholestyramine by GI Follow-up with GI in 4 weeks (2) Elevated LFTs: Code(s): R79.89 - Other specified abnormal findings of blood chemistry Status: Acute Assessment and Plan: Total bilirubin, AST, and ALT are very mildly elevated and this has been noted on labs dating back to November 2019. Being followed by her primary care provider thus no plans for further workup. Hepatic steatosis noted and the CT scan (3) Hypothyroidism: Code(s): E03.9 - Hypothyroidism, unspecified Status: Acute Assessment and Plan: Continue levothyroxine and TSH within normal limit (4) Anxiety: Code(s): F41.9 - Anxiety disorder, unspecified Status: Acute Assessment and Plan: No acute issues. Continue clonazepam. (5) Elevated blood pressure reading: Code(s): R03.0 - Elevated blood-pressure reading, without diagnosis of hypertension Status: Acute Assessment and Plan: Patient's blood pressure has ranged from the 120s to 170 systolic. She has no history of hypertension thus we will continue to monitor to see us this is a trend or isolated readings. 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 (7) Left shoulder pain: Code(s): M25.512 - Pain in left shoulder Status: Acute Assessment and Plan: Since the fall. X-ray negative CT left shoulder with no bony injuries noted likely musculoskeletal injury biceps tendinosis likely Symptomatic treatment History of arthroscopic debridement of the SL a PT year release of the by since tendon January 17, 2020 Short supply of [place] and Flexeril added at the time of discharge Follow up with the Orthopedics and PCP DS: Summary Hospital Course Hospital Course: See above Time Spent with Patient Time attestation: Total time spent providing and/or coordinating discharge services: 50 minutes Exam Narrative: General: Well-developed female sitting up in bed no distress. HEENT: PERRL, EOMI. Sclerae anicteric. Tacky mucous membranes. Neck: Supple. No adenopathy, JVD, or thyromegaly. Respiratory: Lungs are clear to auscultation bilaterally. Cardiovascular: Regular rate and rhythm with S1-S2. Gastrointestinal: Abdomen is soft, nontender, and nondiste
[2021-02-27] MEDS: rifAXIMin 550 MG TABLET PO (16:43)
[2021-03-02 10:25] LABS: Tissue Transglutaminase IgG Ab <1.0 U/mL (<15.0)
[2021-03-03 09:22] LABS: Tissue Transglutaminase IgA Ab <1.0 U/mL (<15.0)
[2021-03-03 17:04] LABS: Rotavirus Stool Not Detected
[2021-03-06 19:33] LABS: Norovirus RNA PCR, Stool NOT DETECTED
== END 2021-02-27 17:39 | disposition home or self-care (01) | DRG 392 ==
LOC: ANHED 12:39 → ANH3MEDSUR 15:14
PROVIDERS: Internal Medicine Gastroenterology; Physician Assistant; Admitting Provider Internal Medicine; Emergency Provider Emergency Medicine; PCP Emergency Medicine; Visit Provider Internal Medicine
PROC: 0DJD8ZZ Inspection of Lower Intestinal Tract, Via Natural or Artificial Opening Endoscopic (ICD-10-PCS; CPT 45378; principal; 2021-02-27 14:00)
DX: K58.0 Irritable bowel syndrome with diarrhea (principal); K63.5 Polyp of colon; K64.8 Other hemorrhoids; G71.3 Mitochondrial myopathy, not elsewhere classified; K76.0 Fatty (change of) liver, not elsewhere classified; F17.210 Nicotine dependence, cigarettes, uncomplicated; R79.89 Other specified abnormal findings of blood chemistry; E03.9 Hypothyroidism, unspecified; F41.9 Anxiety disorder, unspecified; R03.0 Elevated blood-pressure reading, without diagnosis of hypertension; M25.512 Pain in left shoulder; W18.30XA Fall on same level, unspecified, initial encounter; Z79.899 Other long term (current) drug therapy; Z86.010 Personal history of colon polyps
CPT/HCPCS: 36415; 73030; 73200; 74176; 80048; 80053; 80074; 81001; 82274; 82550; 83516; 83690; 83735; 84443; 85025; 85610; 85652; 86140; 87015; 87045; 87177; 87209; 87269; 87272; 87324; 87425; 87427; 87798; 88305; 89055; 96361; 96365; 96367; 96375; 96376; 99285; A9270; G0378; J0131; J2270; J2405; J2704; J3475; J7030; J7040